=== PATIENT | male | born 1965 | race American Indian/Alaskan Native ===

== ENCOUNTER 2017-03-27 09:44 | Emergency (ER) | payer OTHER, MEDICARE ==
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
[2017-03-27] MEDS ORDERED: TORADOL IM ONE (11:18)
--- NOTE | 2017-03-27 12:26 | Cat Scan Report ---
CT cervical spine without contrast: Neck pain. Prior cervical fusion. Transverse images are obtained from skull base through T1. Coronal and sagittal 2-D reformatted images. There is an anterior cervical fusion between C4 and C5 with bony fusion and stabilization plate anteriorly. The plate and screws are well seated. There is mild uncal spurring and minimal right foraminal stenosis. No spinal stenosis. There are no obvious disc herniations or other soft tissue findings. The exam otherwise is generally unremarkable for any significant finding. Impression: C4-5 fusion. Mild right foraminal narrowing.
[2017-03-27 14:07] VITALS: BP 139/91
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
== END 2017-03-27 14:07 | disposition home or self-care (01) ==
LOC: ED 09:44
DX: S13.4XXA Sprain of ligaments of cervical spine, initial encounter (principal); S39.012A Strain of muscle, fascia and tendon of lower back, initial encounter; E11.9 Type 2 diabetes mellitus without complications; M19.90 Unspecified osteoarthritis, unspecified site; E78.00 Pure hypercholesterolemia, unspecified; G89.29 Other chronic pain; V49.49XA Driver injured in collision with other motor vehicles in traffic accident, initial encounter; Y92.488 Other paved roadways as the place of occurrence of the external cause; Y93.89 Activity, other specified; Y99.8 Other external cause status
CPT/HCPCS: 72100; 72125; 72131; 96372; 99284; J1885